=== PATIENT | male | born 1955 | race Caucasian/White ===

== ENCOUNTER → 2016-10-26 | Outpatient (CLI) | payer BC ==
[2016-10-26 09:19] LABS: ALBUMIN 3.7 GM/DL (3.2-5.2); ALBUMIN/GLOBULIN RATIO 1.42 (1.00-1.93); ALKALINE PHOSPHATASE 74 U/L (45-117); ALT/SGPT 19 U/L (12-78); ANION GAP 7 MEQ/L (8-16); AST/SGOT 11 U/L (15-37); BILIRUBIN,TOTAL 0.3 MG/DL (0.2-1.0); BLOOD UREA NITROGEN 17 MG/DL (7-18); CALCIUM LEVEL 8.6 MG/DL (8.8-10.2); CARBON DIOXIDE LEVEL 29 MEQ/L (21-32); CHLORIDE LEVEL 107 MEQ/L (98-107); CREATININE FOR GFR 0.81 MG/DL (0.70-1.30); GLOMERULAR FILTRATION RATE > 60.0 (>49); GLUCOSE, FASTING 94 MG/DL (80-110); POTASSIUM SERUM 4.7 MEQ/L (3.5-5.1); SODIUM LEVEL 143 MEQ/L (136-145); THYROXINE (T4) 6.3 UG/DL (4.5-12.0); TOTAL PROTEIN 6.3 GM/DL (6.4-8.2)
--- NOTE | 2016-10-26 09:33 | REP ---
Clinical: Right inguinal hernia. Technique: Real time gaviria scale ultrasound examination of the bilateral inguinal canals during normal respiration and Valsalva using curved array transducer. Findings: Ultrasound examination demonstrates a fat containing right inguinal hernia measuring up to 3 cm on Valsalva with a defect through the internal ring of the inguinal canal measuring up to 2.8 cm. No left inguinal hernia identified. Impression: Moderate fat containing right inguinal hernia. Signed by Rdedy Boggs MD 10/26/2016 09:25 A
[2016-10-26 12:22] LABS: BASO # 0.1 K/mm3 (0.0-0.2); BASO % 0.8 % (0.0-1.0); EOS # 0.2 K/mm3 (0.0-0.50); EOS % 3.4 % (0.0-3.0); LYMPH # 1.7 K/mm3 (1.5-4.5); LYMPH % 23.8 % (24.0-44.0); MEAN CORPUSCULAR HEMOGLOBIN 32.1 pg (27.0-33.0); MEAN CORPUSCULAR HGB CONC 31.8 g/dl (32.0-36.5); MEAN CORPUSCULAR VOLUME 100.9 fl (80.0-96.0); MONO # 0.6 K/mm3 (0.0-0.8); MONO % 7.7 % (0.0-5.0); NEUTROPHILS # 4.4 K/mm3 (1.8-7.7); NEUTROPHILS % 60.5 % (36.0-66.0); RED CELL DISTRIBUTION WIDTH 12.6 % (11.5-14.5); WHITE BLOOD COUNT 7.2 K/mm3 (4.0-10.0)
== END ==
LOC: M RAD 08:12
PROVIDERS: ATTEND Physician Assistant Medical
DX: K40.30 Unilateral inguinal hernia, with obstruction, without gangrene, not specified as recurrent (principal); E03.9 Hypothyroidism, unspecified; E78.2 Mixed hyperlipidemia

== ENCOUNTER 2017-04-22 10:38 | Emergency (ER) | payer BC ==
[~2017-04-22] VITALS: Ht 180.3 cm; Wt 106.8 kg
[2017-04-22 10:38] VITALS: BP 142/91
[2017-04-22] MEDS ORDERED: IBUP-1114 PO (11:05)
[2017-04-22] MEDS ORDERED: OXYC1TAB23 PO (11:05)
[2017-04-22] MEDS ORDERED: LEVO25TA5 PO (11:05)
[2017-04-22] MEDS ORDERED: CLEO300C2 PO (12:09)
== END 2017-04-22 12:14 | disposition home or self-care (01) ==
LOC: M ED 10:38
DX: K04.7 Periapical abscess without sinus (principal); K02.9 Dental caries, unspecified; E03.9 Hypothyroidism, unspecified; M54.9 Dorsalgia, unspecified; Z79.899 Other long term (current) drug therapy; Z88.1 Allergy status to other antibiotic agents; Z88.2 Allergy status to sulfonamides; F17.210 Nicotine dependence, cigarettes, uncomplicated

== ENCOUNTER 2017-06-12 08:25 | Emergency (ER) | payer BC ==
[~2017-06-12] VITALS: Ht 180.3 cm; Wt 97.7 kg
[~2017-06-12 08:25] MED LIST: CLEO300C2 PO; IBUP-1114 PO; LEVO25TA5 PO; OXYC1TAB23 PO
[2017-06-12] MEDS ORDERED: ONDANSETRON 4MG/2ML VIAL (J2405) IV ONE (09:00)
[2017-06-12] MEDS ORDERED: MORPHINE 2 MG/ML 1ML SYRINGE IV PRN (09:00)
[2017-06-12] MEDS ORDERED: NS 1,000 ML IV ONE (09:00)
[2017-06-12] MEDS ORDERED: ASPI325T PO (09:26)
[2017-06-12 09:45] LABS: MEAN CORPUSCULAR HGB CONC 34.7 g/dl (32.0-36.5); MEAN CORPUSCULAR VOLUME 95.3 fl (80.0-96.0); PLATELET COUNT, AUTOMATED 297 10^3/uL (150-450); RED CELL DISTRIBUTION WIDTH 12.9 % (11.5-14.5); WHITE BLOOD COUNT 5.3 10^3/uL (4.0-10.0)
[2017-06-12 09:47] LABS: ADD MANUAL DIFFER YES; DIFF SLIDE NUMBER 159; LEFT SHIFT POS FLAG; POSITIVE MORPH POS FLAG
[2017-06-12 10:03] LABS: ALBUMIN 4.4 GM/DL (3.2-5.2); ALBUMIN/GLOBULIN RATIO 1.22 (1.00-1.93); BILIRUBIN,DIRECT 0.5 MG/DL (0.0-0.2); BILIRUBIN,TOTAL 1.3 MG/DL (0.2-1.0); CALCIUM LEVEL 9.7 MG/DL (8.8-10.2); CREATININE FOR GFR 1.88 MG/DL (0.70-1.30); GLOMERULAR FILTRATION RATE 38.9 (>49); POTASSIUM SERUM 3.8 MEQ/L (3.5-5.1)
[2017-06-12 10:39] LABS: BANDS 11 % (< 11)
[2017-06-12 10:41] LABS: ANISOCYTOSIS 1+; TOXIC GRANULATION 1+
[2017-06-12] MEDS ORDERED: MORPHINE 4 MG/ML 1ML SYRINGE IV PRN (11:00)
[2017-06-12 12:49] VITALS: BP 121/72
--- NOTE | 2017-06-13 14:10 | ECGEPIP ---
Stationary ECG Study [facility] - ED Test Date: 2017-06-12 Pat Name: MONICA SILVA Department: Room: - Gender: M [employer] Supervisor: MARKO : 1955 Requested By: SHAUNA Calvin Order Number: [id number] Reading MD: Kady Patterson Measurements Intervals [place] Rate: 94 P: 50 WV: 177 QRS: 0 QRSD: 86 T: 58 QT: 341 QTc: 427 Interpretive Statements SINUS RHYTHM WITH OCCASIONAL SUPRAVENTRICULAR PREMATURE COMPLEXES NONSPECIFIC T-WAVE ABNORMALITY NO PRIOR FOR COMPARISON Electronically Signed On 06-13-2017 14:10:37 EST by Kady Patterson
== END 2017-06-12 14:05 | disposition home or self-care (01) ==
LOC: M ED 08:25
DX: K40.90 Unilateral inguinal hernia, without obstruction or gangrene, not specified as recurrent (principal); E03.9 Hypothyroidism, unspecified
CPT/HCPCS: 80048; 80076; 83605; 85025; 87040; 93005; 93041; 96361; 96374; 96375; 96376; 99285; J2405

== ENCOUNTER 2017-08-07 09:24 | Day surgery (SDC) | payer BC ==
[~2017-08-07 09:24] MED LIST changes: -CLEO300C2 PO; -IBUP-1114 PO; -LEVO25TA5 PO; +LIDOCAINE 2% INJ 100 MG/5 ML SDV (FOR ANES.) As Ordered; +MIDAZOLAM INJ 2 MG/2 ML VIAL (J2250) As Ordered; -OXYC1TAB23 PO; +PROPOFOL 200 MG/20 ML VIAL As Ordered; +ROCURONIUM BROMIDE 50 MG/5 ML VIAL As Ordered; +dexameTHASONE 4 MG/ML 1ML VIAL (J1100) As Ordered; +ePHEDrine SULFATE 25 MG/5 ML(5MG/ML) SYRINGE As Ordered; +fentaNYL 250 MCG/5 ML INJECTION (J3010) As Ordered
[2017-08-07] MEDS ORDERED: LIDOCAINE 2% INJ 100 MG/5 ML SDV (FOR ANES.) As Ordered (09:25)
[2017-08-07] MEDS ORDERED: fentaNYL 250 MCG/5 ML INJECTION (J3010) As Ordered ×2 (09:25→12:07)
[2017-08-07] MEDS ORDERED: PROPOFOL 200 MG/20 ML VIAL As Ordered (09:25)
[2017-08-07] MEDS ORDERED: MIDAZOLAM INJ 2 MG/2 ML VIAL (J2250) As Ordered (09:25)
[2017-08-07] MEDS ORDERED: ROCURONIUM BROMIDE 50 MG/5 ML VIAL As Ordered (09:25)
[2017-08-07] MEDS: LR 1,000 ML IV (10:00)
[2017-08-07] MEDS: CEFAZOLIN SOD 1 GM in APPROPRIATE DILUENT 1 EA IV (11:29)
[2017-08-07] MEDS ORDERED: LABETALOL HCL 100 MG/20 ML VIAL As Ordered (11:46)
[2017-08-07] MEDS ORDERED: ESMOLOL INJ 100MG/10ML VIAL As Ordered (11:46)
[2017-08-07] MEDS ORDERED: GLYCOPYRROLATE INJ 0.2 MG/ML 2 ML VIAL As Ordered (12:10)
[2017-08-07] MEDS ORDERED: ONDANSETRON 4MG/2ML VIAL (J2405) As Ordered (12:10)
[2017-08-07] MEDS ORDERED: KETOROLAC 60 MG/2 ML VIAL (J1885) As Ordered (12:10)
[2017-08-07] MEDS ORDERED: dexameTHASONE 4 MG/ML 1ML VIAL (J1100) As Ordered (12:10)
[2017-08-07] MEDS ORDERED: NEOSTIGMINE 10 MG/10 ML VIAL (J2710) As Ordered (12:10)
[2017-08-07] MEDS: BUPIVACAINE HCL 0.25% 30 ML VIAL As Ordered (13:10)
[2017-08-07] MEDS: LIDOCAINE W/EPINEPHRINE 1% 20ML VIAL As Ordered (13:10)
[2017-08-07] MEDS ORDERED: MORPHINE 2 MG/ML 1ML SYRINGE IV (13:45)
[2017-08-07] MEDS ORDERED: NORCO, ANEXSIA 5/325MG TABLET (HYDROcodone/ACETAMINOPHEN) PO (13:45)
[2017-08-07] MEDS ORDERED: METOCLOPRAMIDE INJ 10MG/2ML VIAL (J2765) IV (13:45)
[2017-08-07] MEDS ORDERED: PERCOCET 5MG/325MG TAB PO (13:45)
[2017-08-07] MEDS ORDERED: MEPERIDINE INJ 25 MG/ML VIAL (J2175) IV (13:45)
[2017-08-07] MEDS ORDERED: LR 1,000 ML IV ×2 (13:45)
[2017-08-07] MEDS ORDERED: fentaNYL 100 MCG/2 ML INJECTION (J3010) IV (13:45)
[2017-08-07] MEDS ORDERED: ONDANSETRON 4MG/2ML VIAL (J2405) IV ×2 (13:45)
== END 2017-08-07 15:45 | disposition home or self-care (01) ==
LOC: M SDC 09:24
DX: K40.90 Unilateral inguinal hernia, without obstruction or gangrene, not specified as recurrent (principal); E03.9 Hypothyroidism, unspecified; M54.30 Sciatica, unspecified side; F12.90 Cannabis use, unspecified, uncomplicated; Z88.2 Allergy status to sulfonamides; Z79.899 Other long term (current) drug therapy; Z79.82 Long term (current) use of aspirin; Z72.0 Tobacco use
CPT/HCPCS: 49650

== ENCOUNTER 2019-09-09 08:55 | Day surgery (SDC) | payer BC ==
[~2019-09-09] VITALS: Ht 177.8 cm; Wt 104.3 kg
[~2019-09-09 08:55] MED LIST changes: +ASPI-1 PO; +CLEO300C2 PO; +IBUP-1114 PO; +LEVO25TA5 PO; -LIDOCAINE 2% INJ 100 MG/5 ML SDV (FOR ANES.) As Ordered; -MIDAZOLAM INJ 2 MG/2 ML VIAL (J2250) As Ordered; +OXYC1TAB23 PO; -PROPOFOL 200 MG/20 ML VIAL As Ordered; -ROCURONIUM BROMIDE 50 MG/5 ML VIAL As Ordered; +ceFAZolin SOD 1 GM in D5W MINI-BAG PLUS 50 ML IV ONE; -dexameTHASONE 4 MG/ML 1ML VIAL (J1100) As Ordered; -ePHEDrine SULFATE 25 MG/5 ML(5MG/ML) SYRINGE As Ordered; -fentaNYL 250 MCG/5 ML INJECTION (J3010) As Ordered
[2019-09-09] MEDS ORDERED: propofoL 200 MG/20 ML VIAL As Ordered ONE (10:39)
[2019-09-09] MEDS ORDERED: LIDOCAINE 2% INJ 100 MG/5 ML SDV (FOR ANES.) As Ordered ONE ×3 (10:39→12:03)
[2019-09-09] MEDS ORDERED: ROCURONIUM BROMIDE 50 MG/5 ML VIAL As Ordered ONE (10:39)
[2019-09-09] MEDS ORDERED: MIDAZOLAM INJ 2 MG/2 ML VIAL (J2250) As Ordered ONE (10:40)
[2019-09-09] MEDS ORDERED: fentaNYL 100 MCG/2 ML INJECTION (J3010) As Ordered ONE ×2 (10:40→12:01)
[2019-09-09] MEDS ORDERED: ONDANSETRON 4MG/2ML VIAL (J2405) As Ordered ONE (10:40)
[2019-09-09] MEDS ORDERED: dexameTHASONE 4 MG/ML 1ML VIAL (J1100) As Ordered ONE (10:40)
[2019-09-09] MEDS ORDERED: BUPIVACAINE/EPIN 0.25% 30 ML VIAL As Ordered ONE (11:16)
[2019-09-09] MEDS ORDERED: ePHEDrine SULFATE 25 MG/5 ML(5MG/ML) SYRINGE As Ordered ONE (11:53)
[2019-09-09] MEDS ORDERED: ACETAMINOPHEN 1000MG 100ML IV BTL (OFIRMEV) (J0131 PER 10MG) As Ordered ONE (12:21)
[2019-09-09] MEDS ORDERED: SUGAMMADEX SODIUM 500 MG/5 ML VIAL (BRIDION) As Ordered ONE (12:21)
[2019-09-09] MEDS ORDERED: KETOROLAC 60 MG/2 ML VIAL (J1885) As Ordered ONE (12:21)
[2019-09-09] MEDS ORDERED: fentaNYL 100 MCG/2 ML INJECTION (J3010) IV PRN (13:45)
[2019-09-09] MEDS ORDERED: ONDANSETRON 4MG/2ML VIAL (J2405) IV PRN ×2 (13:45→14:46)
[2019-09-09] MEDS ORDERED: LR 1,000 ML IV SCH ×2 (13:45→14:46)
[2019-09-09] MEDS ORDERED: oxyCODONE 5MG TAB PO PRN (13:45)
[2019-09-09] MEDS ORDERED: PERCOCET 5MG/325MG TAB PO PRN (14:46)
[2019-09-09 15:50] VITALS: BP 142/80
--- NOTE | 2019-09-10 11:43 | RO ---
DATE OF PROCEDURE: 09/09/2019 PREOPERATIVE DIAGNOSIS: Recurrent right inguinal hernia. POSTOPERATIVE DIAGNOSIS: Recurrent right inguinal hernia (with lipoma of the cord and direct inguinal hernia). PROCEDURE: Right inguinal hernia repair with mesh. SURGEON: Steve Youssef MD LINOLEUM TILE LAYER: ANESTHESIA: General endotracheal anesthesia. ESTIMATED BLOOD LOSS: Minimal. FLUIDS: Crystalloid. DISPOSITION: Patient was taken to the recovery room awake, alert, and hemodynamically stable. BRIEF OPERATIVE SUMMARY: Patient was brought to the operating room and was given general anesthesia. After adequate anesthesia and preoperative antibiotics were given, the patient was prepped and draped in the usual sterile fashion. Next, a right inguinal incision was made with a skin knife. Blunt dissection was carried down to fascia, and the external oblique muscle fibers were opened along its length down through the external ring. With adequate retraction, the cord structures then were dissected off the pubis and a [place] drain was placed around the cord structures. The patient had relatively thickened cremasteric muscle fibers, and I did need to open these up to get to the lipoma of the cord that was relatively large in size. This was followed back to the internal ring and then ligated at its base with a #3-0 Vicryl tie and transected. Next, the patient also had a direct inguinal component. This was much more difficult to dissect off the surrounding structures with some chronic inflammation and most likely inflammation from the previous surgery that had been performed. In any case, this was mobilized off surrounding structures and eventually I was able to get this off the floor of the canal and dissect it back to the area where it was coming through the defect and this was dissected off the medial aspect of the cord structures and then reduced. Using the PerFix Plug, I placed this through the defect and then sutured this to the inguinal ligament inferiorly and superiorly on the obliques. Next, an Ultrapro mesh was cut to the appropriate size, tacked in at the lateral border of pubis, and then on the inguinal ligament and this was sutured in interruptedly with #2-0 PDS. Next, the medial aspect was tacked down with the Securestrap as well, and the tails of the mesh were brought together with #2-0 Vicryl. The patient was awakened from his anesthesia, extubated, brought to the recovery room awake, alert, hemodynamically stable. Sponge and needle counts were correct times two.
== END 2019-09-09 15:50 | disposition home or self-care (01) ==
LOC: M SDC 08:55
PROVIDERS: ATTEND Surgery
DX: K40.91 Unilateral inguinal hernia, without obstruction or gangrene, recurrent (principal); E03.9 Hypothyroidism, unspecified; Z79.899 Other long term (current) drug therapy; Z88.2 Allergy status to sulfonamides; Z88.5 Allergy status to narcotic agent; F17.218 Nicotine dependence, cigarettes, with other nicotine-induced disorders
CPT/HCPCS: 49651; 88305; C1781; J0131; J0690; J1100; J1885; J2250; J2405; J3010

== ENCOUNTER → 2021-08-02 | Outpatient (CLI) | payer OTHER ==
[~2021-08-02] MED LIST changes: -ceFAZolin SOD 1 GM in D5W MINI-BAG PLUS 50 ML IV ONE
--- NOTE | 2021-08-02 08:30 | REP ---
INDICATION: AAA/SMOKER COMPARISON: None. TECHNIQUE: Axial noncontrast images from the thoracic inlet to the upper abdomen using low-dose lung screening technique (LDCT). FINDINGS: Lung goodwin demonstrate emphysematous changes and mild subpleural fibrosis along with bronchiectasis. There are few small nodules up to 6 mm including subpleural right middle lobe nodule (image 59), and anterior left upper lobe nodule (image 41). No effusion. No pneumothorax. IMPRESSION: Lung-RADS category 3. Six month low-dose follow-up examination is warranted to assess stability. <Electronically signed by Reddy Boggs > 08/02/21 [id number]
--- NOTE | 2021-08-02 08:31 | REP ---
INDICATION: AAA/SMOKER COMPARISON: None. TECHNIQUE: Real time gaviria scale ultrasound examination using curved array transducer. FINDINGS: The abdominal aorta is normal by sonographic evaluation with mild atherosclerotic changes and no evidence for aneurysm. Proximal aorta: 3.2 x 2.7 cm Aorta at renal arteries: 2.7 x 2.6 cm Mid aorta: 2.2 x 2.6 cm Distal aorta: 2.0 x 2.2 cm Right common iliac artery: 1.2 x 1.2 cm Left common iliac artery: 1.0 x 1.1 cm IMPRESSION: Normal caliber aorta. No aneurysm. <Electronically signed by Reddy Boggs > 08/02/21 0836
== END ==
LOC: M RAD 07:56
PROVIDERS: ATTEND Physician Assistant Medical
DX: Z71.6 Tobacco abuse counseling (principal); Z87.891 Personal history of nicotine dependence; R91.1 Solitary pulmonary nodule

== ENCOUNTER → 2022-10-12 | Outpatient (CLI) | payer OTHER | LOC: M RAD 08:28 | PROVIDERS: ATTEND Physician Assistant Medical | DX: Z12.2 Encounter for screening for malignant neoplasm of respiratory organs (principal); F17.200 Nicotine dependence, unspecified, uncomplicated ==

== ENCOUNTER → 2023-05-03 | Outpatient (CLI) | payer OTHER | LOC: M RAD 08:15 | PROVIDERS: ATTEND Internal Medicine Pulmonary Disease | DX: R91.1 Solitary pulmonary nodule (principal) ==

== ENCOUNTER → 2023-05-25 | Outpatient (CLI) | payer OTHER | LOC: M RAD 08:06 | PROVIDERS: ATTEND Physician Assistant Medical | DX: R55 Syncope and collapse (principal) ==

== ENCOUNTER 2024-08-01 13:14 | Emergency (ER) | payer MEDICARE, OTHER ==
[~2024-08-01] VITALS: Ht 177.8 cm; Wt 114.0 kg
[2024-08-01] MEDS ORDERED: ISOVUE-370 76% 100ML VIAL As Ordered ONE (14:00)
[2024-08-01 14:06] LABS: BASO # 0.1 10^3/uL (0.0-0.2); BASO % 0.6 % (0.0-1.0); EOS % 0.4 % (0.0-3.0); HEMATOCRIT 44.5 % (42.0-52.0); HEMOGLOBIN 14.7 g/dl (13.5-17.5); LYMPH # 1.1 10^3/uL (1.5-5.0); LYMPH % 13.1 % (24.0-44.0); MEAN CORPUSCULAR HEMOGLOBIN 32.7 pg (27.0-33.0); MEAN CORPUSCULAR VOLUME 99.1 fl (80.0-96.0); MONO # 0.6 10^3/uL (0.0-0.8); MONO % 7.7 % (2.0-8.0); NEUTROPHILS # 6.3 10^3/uL (1.5-8.5); NEUTROPHILS % 77.5 % (36.0-66.0); PLATELET COUNT, AUTOMATED 268 10^3/uL (150-450); RED BLOOD COUNT 4.49 10^6/uL (4.30-6.10); WHITE BLOOD COUNT 8.1 10^3/uL (4.0-10.0)
[2024-08-01 14:13] VITALS: BP 180/110; TEMP 97.5; O2SAT 96
[2024-08-01 14:18] LABS: INR 0.93; PARTIAL THROMBOPLASTIN TIME 30.5 SECONDS (24.8-34.2); PROTHROMBIN TIME 12.7 SECONDS (12.5-14.5)
[2024-08-01 15:48] VITALS: BP 169/121; TEMP 97.5; O2SAT 97
== END 2024-08-01 15:53 | disposition left against medical advice (07) ==
LOC: M ED 13:14
DX: G45.9 Transient cerebral ischemic attack, unspecified (principal); I48.91 Unspecified atrial fibrillation; I10 Essential (primary) hypertension; E03.9 Hypothyroidism, unspecified; F12.10 Cannabis abuse, uncomplicated; Z88.2 Allergy status to sulfonamides; Z88.5 Allergy status to narcotic agent; Z79.899 Other long term (current) drug therapy; Z53.9 Procedure and treatment not carried out, unspecified reason
CPT/HCPCS: 36415; 70450; 70496; 70498; 71045; 85025; 85610; 85730; 86850; 86900; 86901; 93005; 93041; 94760; 99285; Q9967